=== PATIENT | male | born 1990 | race Caucasian/White ===

== ENCOUNTER 2017-08-13 22:58 | Emergency (ER) | payer OTHER ==
[2017-08-13] MEDS ORDERED: Adacel (T-DAP) 0.5 ML VIAL ONE (23:36)
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
[2017-08-13] MEDS ORDERED: Bacitracin Zinc 1 Packet ONE (23:51)
== END 2017-08-14 00:28 | disposition home or self-care (01) ==
LOC: ERS 22:58
DX: S60.012A Contusion of left thumb without damage to nail, initial encounter (principal); S80.212A Abrasion, left knee, initial encounter; V89.2XXA Person injured in unspecified motor-vehicle accident, traffic, initial encounter
CPT/HCPCS: 90471; 90715